=== PATIENT | female | born 1995 | race Two or more races ===

== ENCOUNTER 2025-03-25 17:30 | Emergency (ER) | payer OTHER ==
[~2025-03-25] VITALS: Ht 165.1 cm; Wt 70.3 kg
[2025-03-25] MEDS ORDERED: CEFTRIAXONE SODIUM 1,000 MG VIAL IM ONE (19:15)
[2025-03-25] MEDS ORDERED: KETOROLAC TROMETHAMINE 30 MG VIAL IM ONE (19:15)
[2025-03-25] MEDS ORDERED: KETOROLAC TROMETHAMINE 30 MG VIAL ONE (19:22)
[2025-03-25] MEDS ORDERED: LIDOCAINE HCL 1% 10ML VIAL ONE (19:23)
[2025-03-25] MEDS ORDERED: CEFTRIAXONE SODIUM 1,000 MG VIAL ONE (19:23)
[2025-03-25 19:37] LABS: BASO % 0.5 % (0.1-1.2); EOS # 0.27 (0.04-0.54); EOS % 2.0 % (0.7-7.0); LYMPH # 2.56 (1.18-3.74); LYMPH % 19.2 % (19.3-53.1); MEAN PLATELET VOLUME 11.30 fl (9.4-12.4); MONO # 1.12 (0.24-0.82); MONO % 8.4 % (4.7-12.5); NEUT # 9.23 (1.56-6.13); NEUT % 69.3 % (34.0-71.1); RED CELL DISTRIBUTION WIDTH 12.6 % (11.6-14.4)
[2025-03-25 19:39] LABS: ERYTHROCYTE SEDIMENTATION RATE 17 mm/hr (0-20)
[2025-03-25] MEDS ORDERED: CEPHALEXIN500 M1 PO (21:04)
[2025-03-25] MEDS ORDERED: DICLOFENAC SODI50 MG PO (21:12)
== END 2025-03-25 21:18 | disposition home or self-care (01) ==
LOC: ER 17:48
PROVIDERS: Emergency Medicine
DX: L03.113 Cellulitis of right upper limb (principal); M25.521 Pain in right elbow